=== PATIENT | female | born 1970 | race Caucasian/White ===

== ENCOUNTER → 2017-08-25 | Outpatient (CLI) | payer BC ==
--- NOTE | 2017-08-26 09:28 | RADIOLOGY REPORT (SQ) ---
EXAM DESCRIPTION: NM 3 PHASE BONE SCAN COMPLETED DATE/TIME: 08/26/2017 8:07 am REASON FOR STUDY: STRESS FX (M84.30XD) M84.30XD STRESS FRACTURE, UNSP SITE, SUBS FOR FX W ROUTN HEA COMPARISON: Bilateral foot films 08/06/2017 RADIONUCLIDE AND DOSE: 21.2 millicuries Tc99m MDP. The route of agent administration: Intravenous. ADDITIONAL DRUGS AND DOSES: None. TECHNIQUE: Following injection of the radiopharmaceutical, serial blood flow images acquired. Equil ibrium blood pool images then acquired. Routine delayed images at 4 hours and 20 hours acquired of t he areas of clinical concern with additional focused images as needed. AREA OF INTEREST: Bilateral feet LIMITATIONS: None. FINDINGS: VASCULAR FLOW IMAGES: No asymmetry or focal areas of hyperemia. BLOOD POOL IMAGES: No asymmetry or focal areas of soft-tissue hyper-perfusion. BONES: On the delayed images, there is increased uptake along the right great toe medial sesamoid bon e. On the delayed images there is increased uptake along the anterior distal right tibia from jansen splin ts. On delayed images on the left side, there is mild increased uptake in the medial sesamoid bone. On the left on delayed images, there is increased uptake at the left 2nd metatarsal head which could indicate stress reaction. OTHER: No other significant finding. IMPRESSION: Increased uptake in the medial sesamoid bones right greater than left worrisome for sesa moid dysfunction or stress reaction. Increased uptake in the left 2nd metatarsal head which could be related to stress reaction. Early ch anges of [place] disease could not be excluded. Increased uptake right lower leg anterior tibia from jansen splints COMMENT: Quality measure 147: Current bone scan is compared with any available plain radiographs, p rior bone scans, and CT/MRI. TECHNICAL DOCUMENTATION: JOB ID: [id number] [employer]- All Rights Reserved Reading location - IP/workstation name: [email or web address]
== END ==
LOC: RAD 11:16
PROVIDERS: ATTEND Family Medicine
DX: M84.30XD Stress fracture, unspecified site, subsequent encounter for fracture with routine healing (principal)
CPT/HCPCS: 78315; A9561; Q9969